=== PATIENT | female | born 1980 | race African-American/Black ===

== ENCOUNTER 2016-12-21 21:33 | Emergency (ER) | payer OTHER ==
[2016-12-21 21:38] VITALS: PULSE 81; RESP 20; TEMP 97.6
[2016-12-21] MEDS ORDERED: diphenhydrAMINE 50 MG/ML 1 ML VIAL IVP STA (21:52)
[2016-12-21] MEDS ORDERED: METOCLOPRAMIDE 5 MG/ML 2 ML VIAL IVP STA (21:52)
--- NOTE | 2016-12-21 21:57 | ED ---
Headache HPI - General Chief Complaint: Headache Stated Complaint: headache/nausea Time Seen by Provider: 12/21/16 21:48 Source: RN notes reviewed Mode of arrival: ambulatory Limitations: no limitations - History of Present Illness Initial Comments: 36 yo female presents to the ER with chief complaint of headache. Patient has long history of headaches and states this headache has been on off for about 3 weeks now. Patient states she started her at home medications with no improvement. Patient states she has had nausea. Patient did she's had multiple CAT scans of her head she's been to the doctor. Patient states it's much like her normal headache. Patient states she has sensitivity to light and sound. Patient states it is throbbing. Patient states that there is no falls traumas or injuries prior to this headache.Patient denies any recent fever, chills, shortness of breath, chest pain, back pain, abdominal pain, nausea vomiting, numbness or tingling, dysuria or hematuria, constipation or diarrhea, visual changes, or any other current symptoms. - Related Data Home Medications Medication Instructions Recorded Confirmed Acetaminophen Tab [Tylenol Tab] 2,000 mg PO DAILY PRN 12/21/16 12/21/16 Ibuprofen [Motrin] 800 mg PO BID PRN 12/21/16 12/21/16 Allergies Allergy/AdvReac Type Severity Reaction Status Date / Time No Known Allergies Allergy Verified 12/21/16 22:36 Review of Systems ROS Statement: Those systems with pertinent positive or pertinent negative responses have been documented in the HPI. ROS Other: All systems not noted in ROS Statement are negative. Past Medical History Past Medical History: Hypertension History of Any Multi-Drug Resistant Organisms: None Reported Past Surgical History: Hysterectomy, Tubal Ligation Additional Past Surgical History / Comment(s): anemia, migraines Past Psychological History: No Psychological Hx Reported Smoking Status: Current every day smoker Past Alcohol Use History: None Reported Past Drug Use History: None Reported General Exam - General Exam Comments Initial Comments: General: The patient is awake and alert, in no distress, and does not appear acutely ill. Eye: Pupils are equal, round and reactive to light, extra-ocular movements are intact; there is normal conjunctiva bilaterally. No signs of icterus. Ears, nose, mouth and throat: There are moist mucous membranes. Neck: The neck is supple, there is no tenderness. Cardiovascular: There is a regular rate and rhythm. No murmur, rub or gallop is appreciated. Respiratory: Lungs are clear to auscultation, respirations are non-labored, breath sounds are equal. No wheezes, stridor, rales, or rhonchi. Gastrointestinal: Soft, non-distended, non-tender abdomen without masses or organomegaly noted. There is no rebound or guarding present. No CVA tenderness. Bowel sounds are unremarkable. Back: There is no tenderness to palpation in the midline. There is no obvious deformity. No rashes noted. Musculoskeletal: Normal ROM, no tenderness, There is no pedal edema. There is no calf tenderness or swelling. Sensation intact. Pulses equal bilaterally 2+. Neurological: CN II-XII intact, There are no obvious motor or sensory deficits. Coordination appears grossly intact. Speech is normal. Skin: Skin is warm and dry and no rashes or lesions are noted. Psychiatric: Cooperative, appropriate mood & affect, normal judgment. Limitations: no limitations Course Vital Signs 12/21/16 21:36 Temperature 97.6 F Pulse Rate 81 Respiratory 20 Rate O2 Sat by Pulse 100 Oximetry Medical Decision Making - Medical Decision Making 36-year-old female presents with chief complaint of headache. Patient is sleeping the room and is feeling better. This time patient will be discharged home. We discussed follow-up with her doctor and return parameters all questions. She stated she understood and she was agreeable with plan. She'll be discharged. Disposition Clinical Impression: Headache Disposition: HOME SELF-CARE Condition: Stable Instructions: Acute Headache (ED) Additional Instructions: Please use medication as discussed. Please follow up with family doctor if symptoms have not improved over the next two days. Please return to the emergency room if your symptoms increase or worsen or for any other concerns. Referrals: Prosper Song MD [STAFF PHYSICIAN] - 1-2 days Time of Disposition: 23:00
[2016-12-21] MEDS ORDERED: SODIUM CHLORIDE 0.9% 1,000 ML IV STA (22:00)
== END 2016-12-21 23:13 | disposition home or self-care (01) ==
LOC: EC 21:33
DX: R51 Headache (principal); R11.0 Nausea; F17.200 Nicotine dependence, unspecified, uncomplicated; Z86.69 Personal history of other diseases of the nervous system and sense organs
CPT/HCPCS: 99283; 96374; 96375; 96361; J1200; J2765

== ENCOUNTER 2017-03-30 14:55 | Emergency (ER) | payer OTHER ==
[2017-03-30 14:58] VITALS: RESP 16
--- NOTE | 2017-03-30 15:42 | ED ---
General Adult HPI - General Chief complaint: Extremity Problem,Nontraumatic Stated complaint: swollen feet Time Seen by Provider: 03/30/17 15:24 Source: patient, family, RN notes reviewed Mode of arrival: wheelchair Limitations: no limitations - History of Present Illness Initial comments: Chief complaint history of present illness a 36-year-old female reports that she had a recent change in her schedule she went from days 2 nights. 2 days after going tonight she started having left leg and foot swelling. 2 days later she had right leg foot swelling. She went to [facility] put on naproxen for discomfort. Patient denies ever having had this problem before. She does have history of hypertension but has not been on any medications for over 6 months. Patient denies injuries. Patient denies problems with heart lungs liver or kidneys. - Related Data Home Medications Medication Instructions Recorded Confirmed Naproxen [Naprosyn] 500 mg PO BID PRN 03/30/17 03/30/17 Previous Rx's Medication Instructions Recorded Furosemide [Lasix] 10 mg PO DAILY #10 tab 03/30/17 Allergies Allergy/AdvReac Type Severity Reaction Status Date / Time No Known Allergies Allergy Verified 03/30/17 15:03 Review of Systems ROS Statement: Those systems with pertinent positive or pertinent negative responses have been documented in the HPI. Review of systems. Patient denies any visual acuity changes no headache no chest pain no shortness of breath no GI/ problems. No change in appetite. Her only complaint is peripheral swelling from her toes to just below her knees. Ongoing for approximately 7-10 days. No new foods, chemicals, medications, the only changes been going from a dayshift to a block hand. All systems were reviewed. Past medical problems hypertension but the patient does not take any medications but she ran out over 6 months ago. Her family doctor is in the [place] area. She'll be given a local doctor. Patient's surgeries include bilateral tubal ligation followed by emergency hysterectomy. Family history no cancers. Patient denies ALLERGIES. She does smoke strongly encouraged stop. Denies alcohol use. ROS Other: All systems not noted in ROS Statement are negative. Past Medical History Past Medical History: Hypertension Additional Past Medical History / Comment(s): anemia, migraines History of Any Multi-Drug Resistant Organisms: None Reported Past Surgical History: Hysterectomy, Tubal Ligation Additional Past Surgical History / Comment(s): anemia, migraines Past Psychological History: No Psychological Hx Reported Smoking Status: Current every day smoker Past Alcohol Use History: None Reported Past Drug Use History: None Reported General Exam - General Exam Comments Initial Comments: General: The patient is awake and alert, he because of swelling to her lower extremities ongoing for approximately 8-9 days. Vital signs temperature 97.7 pulse 86 respiratory rate 16 pulse ox on percent room air blood pressure 128/78 Eye: Pupils are equal, round and reactive to light, extra-ocular movements are intact ; there is normal conjunctiva bilaterally. No signs of icterus. Ears, nose, mouth and throat: There are moist mucous membranes and no oral lesions. Neck: The neck is supple, there is no tenderness or JVD. Cardiovascular: There is a regular rate and rhythm. No murmur, rub or gallop is appreciated. Respiratory: Lungs are clear to auscultation, respirations are non-labored, breath sounds are equal. No wheezes, stridor, rales, or rhonchi. Gastrointestinal: Soft, non-distended, non-tender abdomen without masses or organomegaly noted. There is no rebound or guarding present. No CVA tenderness. Bowel sounds are unremarkable. Back: There is no tenderness to palpation in the midline. There is no obvious deformity. No rashes noted. No pain with kidney punch his. Musculoskeletal: Normal ROM, patient complains of tender feet and swelling to both feet and ankles and legs for the past 8 days. Taking naproxen without relief. Neurological: No neuro deficits Skin: Skin is warm and dry and no rashes or lesions are noted. Limitations: no limitations Course Vital Signs 03/30/17 14:56 Temperature 97.7 F Pulse Rate 86 Respiratory 16 Rate Blood Pressure 128/78 O2 Sat by Pulse 100 Oximetry Medical Decision Making - Medical Decision Making Medical decision-making. The patient's white count 6.1 hemoglobin 14.9 hematocrit of 47. Potassium is 3.7. Kidneys are working well to BUN 5 creatinine 0.6 with a GFR greater than 60. Glucose is 73. CRP is less than 5. BNP is only 59. Chest x-ray is done AP and lateral view and reviewed by radiologist his impression is no acute pulmonary process. As read by Dr. Perez At this juncture the patient will be placed on Lasix. Suggested to decrease salt intake. Advised to follow-up with family physician, keep her legs elevated , off work for the next 2 days so that she can see her family physician on Saturday. - Lab Data Result diagrams: 03/30/17 15:52 03/30/17 15:52 Lab Results 03/30/17 03/30/17 03/30/17 Range/Units 15:52 15:52 15:52 WBC 6.1 (3.8-10.6) k/uL RBC 5.28 (3.80-5.40) m/uL Hgb 14.9 (11.4-16.0) gm/dL Hct 47.5 H (34.0-46.0) % MCV 90.0 (80.0-100.0) fL MCH 28.1 (25.0-35.0) pg MCHC 31.2 (31.0-37.0) g/dL RDW 15.1 (11.5-15.5) % Plt Count 200 (150-450) k/uL Neutrophils % 56 % Lymphocytes % 35 % Monocytes % 5 % Eosinophils % 2 % Basophils % 1 % Neutrophils # 3.4 (1.3-7.7) k/uL Lymphocytes # 2.1 (1.0-4.8) k/uL Monocytes # 0.3 (0-1.0) k/uL Eosinophils # 0.1 (0-0.7) k/uL Basophils # 0.0 (0-0.2) k/uL Sodium 139 (137-145) mmol/L Potassium 3.9 (3.5-5.1) mmol/L Chloride 110 H (98-107) mmol/L Carbon Dioxide 24 (22-30) mmol/L Anion Gap 5 mmol/L BUN 5 L (7-17) mg/dL Creatinine 0.62 (0.52-1.04) mg/dL Est GFR (MDRD) Af Amer >60 (>60 ml/min/1.73 sqM) Est GFR (MDRD) Non-Af >60 (>60 ml/min/1.73 sqM) Glucose 73 L (74-99) mg/dL Calcium 8.6 (8.4-10.2) mg/dL Total Bilirubin 0.2 (0.2-1.3) mg/dL AST 15 (14-36) U/L ALT 21 (9-52) U/L Alkaline Phosphatase 36 L (38-126) U/L C-Reactive Protein <5.0 (<10.0) mg/L NT-Pro-B Natriuret Pep 59 pg/mL Total Protein 5.1 L (6.3-8.2) g/dL Albumin 2.7 L (3.5-5.0) g/dL Disposition Clinical Impression: Edema, peripheral Disposition: HOME SELF-CARE Condition: Fair Instructions: Leg Edema (ED) Additional Instructions: Keep legs elevated. Decrease salt intake. Take Lasix 20 mg one per day for the next 5 days. Follow-up with your family physician don't have one follow-up with Dr. Dalton Prescriptions: Furosemide [Lasix] 10 mg PO DAILY #10 tab Referrals: None,Stated [Primary Care Provider] - 1-2 days Time of Disposition: 16:42
[2017-03-30] MEDS ORDERED: SODIUM CHLORIDE 0.9% 1,000 ML IV SCH (15:45)
[2017-03-30 16:02] LABS: Basophils % (A) 1 %; CH 29.2; CHCM 32.6; Eosinophils # (A) 0.1 k/uL (0-0.7); Eosinophils % (A) 2 %; HCT 47.5 % (34.0-46.0); HDW 2.22; HGB 14.9 gm/dL (11.4-16.0); Luc # (Auto) 0.09; Luc % (Auto) 2; Lymphocytes # (A) 2.1 k/uL (1.0-4.8); Lymphocytes % (A) 35 %; MCH 28.1 pg (25.0-35.0); MCHC 31.2 g/dL (31.0-37.0); Mean Platelet Volume 7.9; Monocytes # (A) 0.3 k/uL (0-1.0); Monocytes % (A) 5 %; Neutrophils # (A) 3.4 k/uL (1.3-7.7); Neutrophils % (A) 56 %; RBC 5.28 m/uL (3.80-5.40); RDW 15.1 % (11.5-15.5); WBC 6.1 k/uL (3.8-10.6); WBC (Perox) 5.94
[2017-03-30 16:11] LABS: ALT 21 U/L (9-52); AST 15 U/L (14-36); Alkaline Phosphatase 36 U/L (38-126); Anion Gap 5 mmol/L; Blood Urea Nitrogen 5 mg/dL (7-17); Calcium 8.6 mg/dL (8.4-10.2); Carbon Dioxide 24 mmol/L (22-30); Chloride 110 mmol/L (98-107); Glucose 73 mg/dL (74-99); Non-African American GFR(MDRD) >60 (>60 ml/min/1.73 sqM); Potassium 3.9 mmol/L (3.5-5.1); Sodium 139 mmol/L (137-145); Total Bilirubin 0.2 mg/dL (0.2-1.3); Total Protein 5.1 g/dL (6.3-8.2)
--- NOTE | 2017-03-30 16:22 | XR ---
EXAMINATION TYPE: XR chest 2V DATE OF EXAM: 03/30/2017 COMPARISON: 03/24/2016 INDICATION: Pain lower extremities history of smoking TECHNIQUE: Frontal and lateral views of the chest are obtained. FINDINGS: The heart size is normal. The pulmonary vasculature is normal. The lungs are clear. IMPRESSION: 1. No acute pulmonary process.
[2017-03-30 16:26] LABS: C Reactive Protein <5.0 mg/L (<10.0)
[2017-03-30 17:01] VITALS: BP 124/68; PULSE 61; TEMP 97.6
== END 2017-03-30 17:15 | disposition home or self-care (01) ==
LOC: EC 14:55
DX: R60.0 Localized edema (principal); F17.200 Nicotine dependence, unspecified, uncomplicated; Z53.20 Procedure and treatment not carried out because of patient's decision for unspecified reasons
CPT/HCPCS: 36415; 71020; 80053; 83880; 85025; 86140; 99283

== ENCOUNTER 2021-04-07 17:31 | Emergency (ER) | payer OTHER ==
[2021-04-07 17:44] VITALS: RESP 18; TEMP 98
[2021-04-07] MEDS ORDERED: SODIUM CHLORIDE 0.9% 1,000 ML IV STA (17:56)
[2021-04-07 18:19] LABS: Basophils % (A) 1 %; Eosinophils # (A) 0.1 k/uL (0-0.7); Eosinophils % (A) 1 %; HCT 43.1 % (34.0-46.0); HGB 13.8 gm/dL (11.4-16.0); Lymphocytes # (A) 1.8 k/uL (1.0-4.8); Lymphocytes % (A) 24 %; MCH 28.5 pg (25.0-35.0); MCHC 31.9 g/dL (31.0-37.0); MCV 89.1 fL (80.0-100.0); Mean Platelet Volume 8.2; Monocytes # (A) 0.5 k/uL (0-1.0); Monocytes % (A) 6 %; Neutrophils % (A) 67 %; Platelet Count 214 k/uL (150-450); RBC 4.84 m/uL (3.80-5.40); RDW 13.3 % (11.5-15.5); WBC 7.4 k/uL (3.8-10.6)
[2021-04-07 18:28] LABS: African American GFR (CKD) >90 (>60 ml/min/1.73 sqM); Anion Gap 7 mmol/L; Blood Urea Nitrogen 7 mg/dL (7-17); Calcium 9.5 mg/dL (8.4-10.2); Carbon Dioxide 26 mmol/L (22-30); Chloride 104 mmol/L (98-107); Glucose 93 mg/dL (74-99); Non-African American GFR(CKD) >90 (>60 ml/min/1.73 sqM); Potassium 3.7 mmol/L (3.5-5.1); Sodium 137 mmol/L (137-145)
[2021-04-07] MEDS ORDERED: diphenhydrAMINE 50 MG/ML 1 ML VIAL IVP STA (18:32)
[2021-04-07] MEDS ORDERED: MORPHINE SULFATE 4 MG/ML SYRINGE IV STA (18:32)
[2021-04-07] MEDS ORDERED: ONDANSETRON 4 MG/2 ML VIAL IVP STA (18:32)
--- NOTE | 2021-04-07 18:35 | ED ---
General Adult HPI - General Chief complaint: Headache Stated complaint: Headache Time Seen by Provider: 04/07/21 17:49 Source: patient, EMS Mode of arrival: EMS Limitations: no limitations - History of Present Illness Initial comments: Dictation was produced using [employer] dictation software. please excuse any grammatical, word or spelling errors. Chief Complaint: 40-year-old female past medical history migraines presents with headache. History of Present Illness: Patient is a 40-year-old female she has extensive history of migraines. She follows up with neurology. Patient has history of occipital neuralgia. Prescribed Imitrex by her neurologist. Patient is scheduled to have cervical injections by her neurologist in the near future. States she is here today for headache. She states the headache is to her right forehead region. She is photophobic. States that the headache is throbbing. Patient states his headache is severe. She states that her headaches are normally occipital. Denies any fever. No numbness and paresthesias to the arms or legs. No fever or neck stiffness. The ROS documented in this emergency department record has been reviewed and confirmed by me. Those systems with pertinent positive or negative responses have been documented in the HPI. All other systems are other negative and/or no ncontributory. PHYSICAL EXAM: General Impression: Alert and oriented x3, acute distress secondary to pain HEENT: Normocephalic atraumatic, extra-ocular movements intact, pupils equal and reactive to light bilaterally, mucous membranes moist. Cardiovascular: Heart regular rate and rhythm Chest: Able to complete full sentences, no retractions, no tachypnea Abdomen: abdomen soft, non-tender, non-distended, no organomegaly Musculoskeletal: Pulses present and equal in all extremities, no peripheral edema Motor: no focal deficits noted Neurological: CN II-XII grossly intact, no focal motor or sensory deficits noted Skin: Intact with no visualized rashes Psych: Normal affect and mood ED course: 40-year-old female presents to the emergency department for acute headache. Vital signs upon arrival are within acceptable limits. Laboratory evaluation obtained. Laboratory evaluation is unremarkable. Computed tomography scan of the brain shows partially empty sella and 3 mm of cerebellar tonsillar ectopia. Patient reevaluated at 8:50 PM. She states that her headache is almost completely resolved. She is resting comfortably and appears to be in no acute distress. Radiology results were discussed with patient. She is aware of the cerebellar ectopia. She is told of possible intracranial hypertension. She's never been evaluated by plasma center technician or been evaluated for papilledema. Case is discussed with Dr. Jimbo Jimenez neurology recommends that patient be evaluated for papilledema as soon as possible and outpatient basis to determine if patient has intracranial hypertension. Patient denies any vision changes. Headache is significantly improved. She has outpatient follow-up with neurologist. Patient given referral to plasma center technician. Patient is agreeable with plan. Return precautions discussed. - Related Data Home Medications Medication Instructions Recorded Confirmed Naproxen [Naprosyn] 500 mg PO BID PRN 03/30/17 03/30/17 Previous Rx's Medication Instructions Recorded Furosemide [Lasix] 10 mg PO DAILY #10 tab 03/30/17 Allergies Allergy/AdvReac Type Severity Reaction Status Date / Time No Known Allergies Allergy Verified 04/07/21 17:44 Review of Systems ROS Statement: Those systems with pertinent positive or pertinent negative responses have been documented in the HPI. ROS Other: All systems not noted in ROS Statement are negative. Past Medical History Past Medical History: Hypertension Additional Past Medical History / Comment(s): anemia, migraines History of Any Multi-Drug Resistant Organisms: None Reported Past Surgical History: Hysterectomy, Tubal Ligation Additional Past Surgical History / Comment(s): anemia, migraines Past Psychological History: No Psychological Hx Reported Smoking Status: Current every day smoker Past Alcohol Use History: None Reported Past Drug Use History: Marijuana General Exam Limitations: no limitations Course Vital Signs 04/07/21 04/07/21 17:42 19:33 Temperature 98 F Pulse Rate 69 62 Respiratory 18 18 Rate Blood Pressure 145/108 132/94 O2 Sat by Pulse 99 98 Oximetry Medical Decision Making - Lab Data Result diagrams: 04/07/21 18:10 04/07/21 18:10 Lab Results 04/07/21 04/07/21 04/07/21 Range/Units 18:10 18:10 18:10 WBC 7.4 (3.8-10.6) k/uL RBC 4.84 (3.80-5.40) m/uL Hgb 13.8 (11.4-16.0) gm/dL Hct 43.1 (34.0-46.0) % MCV 89.1 (80.0-100.0) fL MCH 28.5 (25.0-35.0) pg MCHC 31.9 (31.0-37.0) g/dL RDW 13.3 (11.5-15.5) % Plt Count 214 (150-450) k/uL MPV 8.2 Neutrophils % 67 % Lymphocytes % 24 % Monocytes % 6 % Eosinophils % 1 % Basophils % 1 % Neutrophils # 5.0 (1.3-7.7) k/uL Lymphocytes # 1.8 (1.0-4.8) k/uL Monocytes # 0.5 (0-1.0) k/uL Eosinophils # 0.1 (0-0.7) k/uL Basophils # 0.0 (0-0.2) k/uL Sodium 137 (137-145) mmol/L Potassium 3.7 (3.5-5.1) mmol/L Chloride 104 (98-107) mmol/L Carbon Dioxide 26 (22-30) mmol/L Anion Gap 7 mmol/L BUN 7 (7-17) mg/dL Creatinine 0.55 (0.52-1.04) mg/dL Est GFR (CKD-EPI)AfAm >90 (>60 ml/min/1.73 sqM) Est GFR (CKD-EPI)NonAf >90 (>60 ml/min/1.73 sqM) Glucose 93 (74-99) mg/dL Calcium 9.5 (8.4-10.2) mg/dL Urine HCG, Qual Not Detected (Not Detectd) Disposition Clinical Impression: Headache Disposition: HOME SELF-CARE Condition: Good Instructions (If sedation given, give patient instructions): Acute Headache (ED) Additional Instructions: follow up with opthamology for evaluation of papilledema. notify your neurologist as soon as possible about your evaluation in the ER today. seek immediate medical attention w worsening headache or vision changes Is patient prescribed a controlled substance at d/c from ED?: No Referrals: Daina Ventura MD [Primary Care Provider] - 1-2 days Darin Maki MD [STAFF PHYSICIAN] - 1-2 days
[2021-04-07 19:34] VITALS: PULSE 62
--- NOTE | 2021-04-07 19:46 | CT ---
EXAMINATION TYPE: CT brain wo con DATE OF EXAM: 04/07/2021 COMPARISON: None HISTORY: Acute headache. CT DLP: 1125.4 mGycm. Automated Exposure Control for Dose Reduction was Utilized. TECHNIQUE: CT scan of the head is performed without contrast. FINDINGS: There is no acute intracranial hemorrhage, mass effect, or midline shift identified. The ventricles and sulci are within normal limits in size. There is a partially empty sella which appear s mildly expanded. There is 3 mm of cerebellar tonsillar ectopia. The globes are intact and the visualized sinuses are clear. IMPRESSION: There is a partially empty sella and 3 mm of cerebellar tonsillar ectopia. . Correlate f or intracranial hypertension.
[2021-04-07 21:02] VITALS: BP 135/89
== END 2021-04-07 21:07 | disposition home or self-care (01) ==
LOC: EC 17:31
DX: R51.9 Headache, unspecified (principal); F17.200 Nicotine dependence, unspecified, uncomplicated; I10 Essential (primary) hypertension; Z86.69 Personal history of other diseases of the nervous system and sense organs
CPT/HCPCS: 36415; 80048; 85025; 81025; 70450; 99284; 96374; 96375; 96361; J2270; J1200; J2405

== ENCOUNTER → 2023-08-14 | Outpatient (CLI) | payer OTHER ==
--- NOTE | 2023-08-14 20:23 | US ---
EXAMINATION TYPE: US thyroid st tissue head/neck DATE OF EXAM: 08/14/2023 COMPARISON: NONE CLINICAL INDICATION: Female, 43 years old with history of E04.9 NONTOXIC GOITER, UNSPECIFIED; enlarge d thyroid noted on outside MRI GLAND SIZE: Right Lobe: 5.6x2.0x2.2 cm Overall Parenchyma: homogeneous Left Lobe: 5.3x1.6x2.2 cm Overall Parenchyma: homogeneous Isthmus Thickness: 0.5 cm NODULES RIGHT: # of nodules measured on right: 1 1. 0.9 X 0.5 x 0.6 cm, mid lateral, mixed cystic and solid, hypoechoic TR 4 nodule, which is wider than tall, with ill-defined margins, without echogenic foci. LEFT: # of nodules measured on left: 1 1. 0.8 X 0.5 x 0.6 cm, mid mid, solid or almost completely solid, hypoechoic TR 4 nodule, which is wider than tall, with ill-defined margins, without echogenic foci. ISTHMUS: # of nodules measured in the isthmus: 0 [employer] Hanger Helper notes: Bilateral neck scanned, several lymph nodes noted at the left submandibular region measuring up to 1.6x0.6x1.1cm IMPRESSION: 1. Mild thyromegaly. 2. A TR4 nodule, one on either side measuring 9 mm on the right and 8 mm on the left. 3. Some clustered enlarged lymph nodes in the left submandibular space measuring up to 1.1 cm short a xis. These may be reactive/post inflammatory and should be followed up clinically. Additional 2-3 mon th follow-up ultrasound to ensure stability/resolution. 2017 ACR TI-RADS LEVEL: TR-RADS 4 - Moderately Suspicious: Follow if > 1 cm, FNA if > 1.5 cm *Highest TI-RADS level nodule reported
== END | disposition home or self-care (01) ==
LOC: RADUSWWP 07:56
PROVIDERS: ATTEND Psychiatry & Neurology Neurology
DX: E04.2 Nontoxic multinodular goiter (principal); R59.0 Localized enlarged lymph nodes
CPT/HCPCS: 76536

== ENCOUNTER 2023-11-11 10:52 | Emergency (ER) | payer OTHER ==
--- NOTE | 2023-11-11 12:34 | ED ---
Skin/Abscess/FB HPI - General Chief complaint: Skin/Abscess/Foreign Body Stated complaint: Skin Problem/Face Time Seen by Provider: 11/11/23 11:47 Source: patient, RN notes reviewed Mode of arrival: ambulatory Limitations: no limitations - History of Present Illness Initial comments: This is a 43-year-old female who presents to the emergency department for facial growths. States that she has had growths to her face for a "long period of time ", but will not specify how long. These tend to change in size, but have recently started to get larger. States that when she woke up, the growths had blood and pus coming from them. The areas are very irritated and she is unsure how to go about treating them. She has never had them bleed on her before. - Related Data Home Medications Medication Instructions Recorded Confirmed Naproxen [Naprosyn] 500 mg PO BID PRN 03/30/17 03/30/17 Previous Rx's Medication Instructions Recorded Furosemide [Lasix] 10 mg PO DAILY #10 tab 03/30/17 Allergies Allergy/AdvReac Type Severity Reaction Status Date / Time No Known Allergies Allergy Verified 04/07/21 17:44 Review of Systems ROS Statement: Those systems with pertinent positive or pertinent negative responses have been documented in the HPI. ROS Other: All systems not noted in ROS Statement are negative. Past Medical History Past Medical History: Hypertension Additional Past Medical History / Comment(s): anemia, migraines History of Any Multi-Drug Resistant Organisms: None Reported Past Surgical History: Hysterectomy, Tubal Ligation Additional Past Surgical History / Comment(s): anemia, migraines Past Psychological History: No Psychological Hx Reported Smoking Status: Former smoker Past Alcohol Use History: None Reported Past Drug Use History: Marijuana General Exam Limitations: no limitations General appearance: alert, in no apparent distress Head exam: Present: atraumatic, other (Two growths protruding from the left latter day region. Growths are firm and garcia/green in color. Dried surrounding blood.) Respiratory exam: Present: normal lung sounds bilaterally. Absent: respiratory distress, wheezes, rales, rhonchi, stridor Cardiovascular Exam: Present: regular rate, normal rhythm, normal heart sounds. Absent: systolic murmur, diastolic murmur, rubs, gallop, clicks Neurological exam: Present: alert, oriented X3, CN II-XII intact Psychiatric exam: Present: normal affect, normal mood Course Vital Signs 11/11/23 11/11/23 11:19 13:23 Temperature 98.9 F Pulse Rate 61 57 L Respiratory 16 18 Rate Blood Pressure 150/89 138/85 O2 Sat by Pulse 99 100 Oximetry Medical Decision Making - Medical Decision Making This is a 43 year old female who presents to the emergency department for facial growths. Was pt. sent in by a medical professional or institution? @ -No Did you speak to anyone other than the patient for history? @ -No Did you review nursing and triage notes? @ -Yes, and I agree, it is accurate with regards to the patient's symptoms. Were old charts reviewed? @ -No Differential Diagnosis? @ -Differential Facial Growth: Abscess, acne, cutaneous horn, actinic keratosis, wart, this is not meant to be an all-inclusive list. EKG interpreted by me (3pts min.)? @ -Not obtained X-rays interpreted by me (1pt min.)? @ -Not obtained CT interpreted by me (1pt min.)? @ -Not obtained U/S interpreted by me (1pt. min.)? @ -Not obtained What testing was considered but not performed? (CT, X-rays, U/S, labs)? Why? @ -None What meds were considered but not given? Why? @ -None Did you discuss the management of the patient with other professionals? @ -No Did you reconcile home meds? @ -No Was smoking cessation discussed for >3mins.? @ - Was critical care preformed (if so, how long)? @ -No Were there social determinants of health that impacted care today? How? (Homelessness, low income, unemployed, alcoholism, drug addiction, transportation, low edu. Level, literacy, decrease access to med. care, [facility], rehab)? @ -No Was there de-escalation of care discussed even if they declined? (Discuss DNR or withdrawal of care, Hospice)? @ -No What co-morbidities impacted this encounter? (DM, HTN, Smoking, COPD, CAD, Cancer, CVA, Hep., AIDS, mental health diagnosis, sleep apnea, morbid obesity)? @ -None Was patient admitted / discharged? @ -Discharged. Physical examination suggestive of potential cutaneous horn. Discussed with the patient that these typically require removal with a animal care service worker or other specialist and they often need to be sent for testing due to the potential for precancerous cells. She was given antibiotic ointment and I advised keeping them bandaged to avoid further irritating them. Information for dermatology follow-up provided. Patient discharged home in stable condition. Undiagnosed new problem with uncertain prognosis? @ -None Drug Therapy requiring intensive monitoring for toxicity (Heparin, Nitro, Insulin, Cardizem)? @ -None Were any procedures done? @ -None Diagnosis/symptom? @ -Cutaneous horn Acute, or Chronic, or Acute on Chronic? @ -Acute Uncomplicated (without systemic symptoms) or Complicated (systemic symptoms)? @ -Uncomplicated Side effects of treatment? @ -None Exacerbation, Progression, or Severe Exacerbation] @ -Not applicable Poses a threat to life or bodily function? @ -No Return precautions reviewed in depth, the patient is instructed to return to the emergency department with any new, worsening, or concerning symptoms. Patient verbalized understanding. This case was discussed in detail with the attending ED physician, Dr. Cortés. Presentation, findings, and treatment plan discussed in detail as well. Disposition Clinical Impression: Cutaneous horn Disposition: HOME SELF-CARE Additional Instructions: Return to the emergency department with any new, worsening, or concerning symptoms. Keep the wounds covered to avoid further irritating them. Contact the dermatology offices listed below for a follow-up appointment to discuss removal. Follow up with your primary care provider in 1-2 days. Is patient prescribed a controlled substance at d/c from ED?: No Referrals: Daina Ventura MD [Primary Care Provider] - 1-2 days Lashay Cullen MD [STAFF PHYSICIAN] - 1-2 days Deion Che MD [REFERRING] - 1-2 days Time of Disposition: 13:07
[2023-11-11 12:42] VITALS: TEMP 98.9
[2023-11-11] MEDS: ACET/COD 300 MG/30 MG STARTER PACK 6 TAB BTL PO STA (13:19)
[2023-11-11] MEDS: MUPIROCIN 2% OINT 22 GM TUBE TOPICAL STA (13:20)
[2023-11-11 13:30] VITALS: BP 138/85; PULSE 57; RESP 18
== END 2023-11-11 13:23 | disposition home or self-care (01) ==
LOC: EC 10:52
DX: L85.8 Other specified epidermal thickening (principal); Z87.891 Personal history of nicotine dependence
CPT/HCPCS: 99282